=== PATIENT | male | born 1975 | race Caucasian/White ===

== ENCOUNTER 2021-03-23 08:18 | Emergency (ER) | payer OTHER ==
--- NOTE | 2021-03-23 08:26 | ED ---
General Adult HPI - General Stated complaint: Overdose Time Seen by Provider: 03/23/21 08:19 Source: patient, RN notes reviewed, old records reviewed - History of Present Illness Initial comments: -year-old male presents with heroin overdose. Patient was picked up in his front yard by EMS after police found him curled up sleeping. He admits to snorting heroin both last night and this morning. He has been previously abstaining from heroin for the past 6 months. He denies intentional self-harm or suicidal ideation. He denies any other illicit drugs. No physical complaints. Patient is somewhat somnolent but able to give history. - Related Data Allergies Allergy/AdvReac Type Severity Reaction Status Date / Time No Known Allergies Allergy Verified 03/23/21 08:26 Review of Systems ROS Statement: Those systems with pertinent positive or pertinent negative responses have been documented in the HPI. ROS Other: All systems not noted in ROS Statement are negative. General Exam General appearance: lethargic Head exam: Present: atraumatic, normocephalic Eye exam: Present: normal appearance, PERRL ENT exam: Present: normal exam Neck exam: Present: normal inspection. Absent: tenderness, meningismus Respiratory exam: Present: normal lung sounds bilaterally. Absent: respiratory distress Cardiovascular Exam: Present: regular rate, normal rhythm GI/Abdominal exam: Present: soft. Absent: distended, tenderness, guarding Extremities exam: Present: normal inspection, normal capillary refill. Absent: pedal edema Neurological exam: Present: alert. Absent: CN II-XII intact, motor sensory deficit Psychiatric exam: Present: depressed, anxious. Absent: suicidal ideation Skin exam: Present: warm, dry, intact. Absent: cyanosis, diaphoretic Course Vital Signs 03/23/21 08:20 Temperature 97.3 F L Pulse Rate 73 Respiratory 18 Rate Blood Pressure 133/97 O2 Sat by Pulse 97 Oximetry Medical Decision Making - Medical Decision Making Patient observed in the emergency Department, no need for Narcan, no need for supplemental oxygen. He has contacted his family member for a ride. He is given resources for drug rehabilitation. Disposition Clinical Impression: Accidental drug overdose Disposition: HOME SELF-CARE Condition: Fair Instructions (If sedation given, give patient instructions): Adult Overdose (ED) Is patient prescribed a controlled substance at d/c from ED?: No Referrals: None,Stated [Primary Care Provider] - 1-2 days Gilberto Pantoja MD [REFERRING] - 1-2 days Time of Disposition: 09:22
[2021-03-23 08:27] VITALS: RESP 18; TEMP 97.3
[2021-03-23 10:01] VITALS: BP 122/83; PULSE 68
== END 2021-03-23 10:00 | disposition home or self-care (01) ==
LOC: EC 08:18
DX: T40.1X1A Poisoning by heroin, accidental (unintentional), initial encounter (principal)
CPT/HCPCS: 99284

== ENCOUNTER 2021-10-11 07:13 | Inpatient (IN) | payer OTHER ==
[2021-10-11] MEDS ORDERED: ASPIRIN 300 MG SUPP RECTAL STA (07:19)
[2021-10-11 07:20] VITALS: TEMP 97.6
[2021-10-11 07:44] LABS: Basophils % (A) 0 %; Eosinophils # (A) 0.1 k/uL (0-0.7); Eosinophils % (A) 0 %; HCT 53.3 % (39.0-53.0); HGB 17.7 gm/dL (13.0-17.5); Lymphocytes # (A) 1.2 k/uL (1.0-4.8); Lymphocytes % (A) 7 %; MCHC 33.2 g/dL (31.0-37.0); MCV 96.4 fL (80.0-100.0); Monocytes # (A) 1.3 k/uL (0-1.0); Monocytes % (A) 7 %; Neutrophils # (A) 15.6 k/uL (1.3-7.7); Neutrophils % (A) 84 %; Platelet Count 213 k/uL (150-450); RBC 5.53 m/uL (4.30-5.90); RDW 12.9 % (11.5-15.5); WBC 18.6 k/uL (3.8-10.6)
[2021-10-11] MEDS ORDERED: IV FLUID CONTINUATION 1,000 ML IV ONE (07:52)
[2021-10-11] MEDS ORDERED: SODIUM CHLORIDE 0.9% 1,000 ML IV ONE ×4 (07:55→18:45)
[2021-10-11 07:56] LABS: Albumin 4.9 g/dL (3.5-5.0); Calcium 9.1 mg/dL (8.4-10.2); Total Bilirubin 0.6 mg/dL (0.2-1.3); Total Protein 8.6 g/dL (6.3-8.2)
[2021-10-11 07:57] LABS: Prothrombin Time 10.8 sec (9.0-12.0)
[2021-10-11] MEDS ORDERED: LIDOCAINE 1% INJ 10MG/ML (20 ML MDV) ONE ×2 (07:58→11:19)
[2021-10-11] MEDS ORDERED: SODIUM BICARB 8.4% 50 ML SYR (1 MEQ/ML) ONE ×2 (08:00→10:30)
[2021-10-11 08:02] LABS: Partial Thromboplastin Time 18.9 sec (22.0-30.0)
[2021-10-11 08:05] LABS: Magnesium 2.8 mg/dL (1.6-2.3); Potassium 6.6 mmol/L (3.5-5.1)
[2021-10-11] MEDS ORDERED: HEPARIN SODIUM 1,000 UN/ML (10ML VL) MISCELLANE ONE (08:05)
[2021-10-11] MEDS ORDERED: VERAPAMIL 2.5 MG/ML 2 ML AMP ONE (08:08)
[2021-10-11] MEDS ORDERED: NOREPINEPHRINE 4 MG in SODIUM CHLORIDE 0.9% 250 ML IV ONE (08:14)
[2021-10-11] MEDS ORDERED: ceFAZolin 3 GM in SODIUM CHLORIDE 0.9% 100 ML IVPB ONE (08:15)
[2021-10-11] MEDS ORDERED: LIDOCAINE 1% INJ 10MG/ML (20 ML MDV) SQ ONE ×2 (08:16→11:30)
--- NOTE | 2021-10-11 08:16 | ED ---
General Adult HPI - General Chief complaint: Shortness of Breath Stated complaint: altered mental status Time Seen by Provider: 10/11/21 07:13 Source: patient, RN notes reviewed, old records reviewed Mode of arrival: EMS Limitations: no limitations - History of Present Illness Initial comments: This is a 46-year-old male with a past medical history significant for heroin abuse. EMS was contacted because the patient was unresponsive the last time the patient was seen at his baseline was 1 AM. EMS also gave the patient was cyanotic. Patient is able to answer very basic questions and states he does not have any history of diabetes or heart disease but because he so lethargic I'm not sure his history is accurate. No one else is with the patient. - Related Data Home Medications Medication Instructions Recorded Confirmed Gabapentin [Neurontin] 400 mg PO TID 10/11/21 10/11/21 buPROPion HCL [buPROPion HCL SR] 200 mg PO DAILY 10/11/21 10/11/21 Allergies Allergy/AdvReac Type Severity Reaction Status Date / Time No Known Allergies Allergy Verified 10/11/21 10:08 Review of Systems ROS Statement: Those systems with pertinent positive or pertinent negative responses have been documented in the HPI. ROS Other: All systems not noted in ROS Statement are negative. Past Medical History Past Medical History: No Reported History History of Any Multi-Drug Resistant Organisms: None Reported Past Surgical History: No Surgical Hx Reported Past Psychological History: No Psychological Hx Reported Smoking Status: Current every day smoker Past Alcohol Use History: None Reported Past Drug Use History: Heroin, IV Drug Use General Exam - General Exam Comments Initial Comments: GENERAL: Patient is well-developed and well-nourished. Patient is nontoxic and well- hydrated and is in mild distress. ENT: Neck is soft and supple. No significant lymphadenopathy is noted. Oropharynx is clear. Moist mucous membranes. Neck has full range of motion without eliciting any pain. EYES: The sclera were anicteric and conjunctiva were pink and moist. Extraocular movements were intact and pupils were equal round and reactive to light. Eyelids were unremarkable. PULMONARY: Unlabored respirations. Good breath sounds bilaterally. No audible rales rho nchi or wheezing was noted. CARDIOVASCULAR: Patient is tachycardic. ABDOMEN: Soft and nontender with normal bowel sounds. SKIN: Skin is clear with no lesions or rashes and otherwise unremarkable. NEUROLOGIC: Patient is alert and oriented 3. Cranial nerves II through XII are grossly intact. Motor and sensory are also intact. Normal speech, volume and content. Symmetrical smile. MUSCULOSKELETAL: Normal extremities with adequate strength and full range of motion. No lower extremity swelling or edema. No calf tenderness. LYMPHATICS: No significant lymphadenopathy is noted PSYCHIATRIC: Unable to evaluate since so lethargic Limitations: no limitations Course Vital Signs 10/11/21 07:15 Temperature 97.6 F Pulse Rate 109 H Respiratory 30 H Rate Blood Pressure 75/53 O2 Sat by Pulse 96 Oximetry Procedures - [place] Protocol (Time Out) Procedure Performed:: central line placement Performing Provider: Reuben Chavez Nurse: Liliana Purcell Patient Identification (2 identifiers required): Chart, Arm Band, Name, Birthdate, Medical Record Number Patient/Legal Athletic Field Custodian has Confirmed: Identity, Site, Procedure, Consent Site: groin Site Marked: Yes Site Verified With Patient/Guardian: Yes - Central Line Placement Right Femoral Consent Obtained: verbal consent Patient Placed on Monitor/Pulse Ox: Yes MD Prep: mask, gown, gloves Central Line Prep: Chlorhexidine scrub Local Anesthesia Used: Lidocaine 1% Ultrasound Used for Placement: Yes Central Line Lumen Inserted: triple Bloods Obtained for Lab: No Central Line Position: good blood return, all ports aspirated, flushed, capped, sutured in place with nylon Dressing Applied: Tegaderm Patient Tolerated Procedure: well Complications: none Medical Decision Making - Medical Decision Making Chest x-ray showed no obvious acute abnormality. Patient has no access had a central line in the right femoral. Patient received rectal aspirin. Patient also received a bolus of heparin. Soon as the patient arrived I did call a STEMI and afterward it was done with the central line spoke with Dr. Valdes. Patient's EKG initially showed sinus tachycardia at 110 bpm WA interval is 124 QRS is 102 QT interval 312 QTC is 422 patient's EKG shows significant ST segment elevation in II, III, and F aVF as well as V5 and V6. Second EKG was done at 742 it showed sinus tachycardia at 109 bpm WA interval is 128 QRSs 104 QT interval 320 QTC is 4:30. EKG showed ST segment elevation in leads II, III, and F aVF and minimal ST segment elevation in V5 and V6. [facility] the [facility] I put an admitting order and the patient went to the Dock Superintendent. Patient was in the Dock Superintendent when I noted that the potassium was 6.6 and hemolyzed I had those results called into the Dock Superintendent. - Lab Data Result diagrams: 10/11/21 07:35 10/11/21 08:50 Lab Results 10/11/21 10/11/21 10/11/21 Range/Units 07:35 07:35 07:35 WBC 18.6 H (3.8-10.6) k/uL RBC 5.53 (4.30-5.90) m/uL Hgb 17.7 H (13.0-17.5) gm/dL Hct 53.3 H (39.0-53.0) % MCV 96.4 (80.0-100.0) fL MCH 32.0 (25.0-35.0) pg MCHC 33.2 (31.0-37.0) g/dL RDW 12.9 (11.5-15.5) % Plt Count 213 (150-450) k/uL MPV 9.0 Neutrophils % 84 % Lymphocytes % 7 % Monocytes % 7 % Eosinophils % 0 % Basophils % 0 % Neutrophils # 15.6 H (1.3-7.7) k/uL Lymphocytes # 1.2 (1.0-4.8) k/uL Monocytes # 1.3 H (0-1.0) k/uL Eosinophils # 0.1 (0-0.7) k/uL Basophils # 0.0 (0-0.2) k/uL PT 10.8 (9.0-12.0) sec INR 1.0 (<1.2) APTT 18.9 L (22.0-30.0) sec Sodium 138 (137-145) mmol/L Potassium 6.6 H* (3.5-5.1) mmol/L Chloride 100 (98-107) mmol/L Carbon Dioxide 15 L (22-30) mmol/L Anion Gap 23 mmol/L BUN 21 H (9-20) mg/dL Creatinine 3.02 H (0.66-1.25) mg/dL Est GFR (CKD-EPI)AfAm 27 (>60 ml/min/1.73 sqM) Est GFR (CKD-EPI)NonAf 24 (>60 ml/min/1.73 sqM) Glucose 92 (74-99) mg/dL Calcium 9.1 (8.4-10.2) mg/dL Magnesium 2.8 H (1.6-2.3) mg/dL Total Bilirubin 0.6 (0.2-1.3) mg/dL AST 773 H (17-59) U/L ALT 497 H (4-49) U/L Alkaline Phosphatase 72 (38-126) U/L Troponin I (0.000-0.034) ng/mL Total Protein 8.6 H (6.3-8.2) g/dL Albumin 4.9 (3.5-5.0) g/dL 10/11/21 Range/Units 07:35 WBC (3.8-10.6) k/uL RBC (4.30-5.90) m/uL Hgb (13.0-17.5) gm/dL Hct (39.0-53.0) % MCV (80.0-100.0) fL MCH (25.0-35.0) pg MCHC (31.0-37.0) g/dL RDW (11.5-15.5) % Plt Count (150-450) k/uL MPV Neutrophils % % Lymphocytes % % Monocytes % % Eosinophils % % Basophils % % Neutrophils # (1.3-7.7) k/uL Lymphocytes # (1.0-4.8) k/uL Monocytes # (0-1.0) k/uL Eosinophils # (0-0.7) k/uL Basophils # (0-0.2) k/uL PT (9.0-12.0) sec INR (<1.2) APTT (22.0-30.0) sec Sodium (137-145) mmol/L Potassium (3.5-5.1) mmol/L Chloride (98-107) mmol/L Carbon Dioxide (22-30) mmol/L Anion Gap mmol/L BUN (9-20) mg/dL Creatinine (0.66-1.25) mg/dL Est GFR (CKD-EPI)AfAm (>60 ml/min/1.73 sqM) Est GFR (CKD-EPI)NonAf (>60 ml/min/1.73 sqM) Glucose (74-99) mg/dL Calcium (8.4-10.2) mg/dL Magnesium (1.6-2.3) mg/dL Total Bilirubin (0.2-1.3) mg/dL AST (17-59) U/L ALT (4-49) U/L Alkaline Phosphatase (38-126) U/L Troponin I 0.640 H* (0.000-0.034) ng/mL Total Protein (6.3-8.2) g/dL Albumin (3.5-5.0) g/dL Critical Care Time Critical Care Time: Yes Total Critical Care Time: 35 Disposition Clinical Impression: STEMI (ST elevation myocardial infarction) Disposition: ADMITTED IP TO THIS [facility] Time of Disposition: 08:19
--- NOTE | 2021-10-11 08:23 | XR ---
EXAMINATION TYPE: XR chest 1V portable DATE OF EXAM: 10/11/2021 COMPARISON: NONE HISTORY: Chest pain TECHNIQUE: Single frontal view of the chest is obtained. FINDINGS: The heart is prominent in size and there is mild cephalization of pulmonary vasculature. T he lungs are clear consolidative or interstitial opacity. There is no pleural effusion or pneumothorax. The osseous structures are intact. IMPRESSION: Cardiomegaly with mild cephalization the pulmonary vasculature. The findings are most co nsistent with mild CHF. Clinical correlation follow-up to resolution is recommended.
[2021-10-11] MEDS ORDERED: SODIUM BICARB SYR (1 MEQ/ML) 10 ML SYRINGE IV ONE ×2 (08:26→10:05)
[2021-10-11] MEDS: MIDAZOLAM 2 MG/2 ML VIAL IV ONE ×2 (08:28→09:45)
[2021-10-11] MEDS ORDERED: HEPARIN SODIUM 1,000 UN/ML (10ML VL) ONE ×2 (08:29→11:49)
[2021-10-11] MEDS ORDERED: TIROFIBAN BOLUS 12.5MG/250 ML BAG IV ONE (08:38)
[2021-10-11] MEDS ORDERED: TIROFIBAN 12.5MG-250ML NS 250 ML IV ONE (08:38)
[2021-10-11] MEDS ORDERED: niCARdipine 25 MG/10 ML VIAL ONE (08:56)
[2021-10-11] MEDS ORDERED: IOPAMIDOL-370 100ML BTL INJ ONE ×3 (08:58→12:30)
[2021-10-11] MEDS ORDERED: niCARdipine Syringe (1,000 mcg/10 mL) INTRACORON ONE (08:59)
[2021-10-11] MEDS ORDERED: METOPROLOL TARTRATE 5 MG/5 ML VIAL IVP ONE ×4 (09:00→09:23)
[2021-10-11] MEDS ORDERED: FUROSEMIDE 10 MG/ML 4 ML VIAL ONE (09:06)
[2021-10-11] MEDS ORDERED: FUROSEMIDE 10 MG/ML 4 ML VIAL IV ONE (09:07)
[2021-10-11] MEDS ORDERED: TICAGRELOR 90 MG TAB ONE (09:19)
[2021-10-11] MEDS ORDERED: TICAGRELOR 90 MG TAB PO ONE (09:22)
[2021-10-11] MEDS ORDERED: RX INFO: IV CONTRAST WAS GIVEN 1 EACH MISC MISCELLANE PRN (09:39)
[2021-10-11] MEDS ORDERED: ATROPINE SULFATE 0.1 MG/ML 10ML SYRINGE IV PRN (09:39)
[2021-10-11] MEDS ORDERED: MAG HYDROX/AL HYDROX/SIMETH 30 ML CUP PO PRN (09:39)
[2021-10-11] MEDS ORDERED: NITROGLYCERIN SL TABS 0.4 MG TAB SUBLINGUAL PRN (09:39)
[2021-10-11] MEDS ORDERED: ZOLPIDEM 5 MG TAB PO PRN (09:39)
[2021-10-11] MEDS ORDERED: SODIUM CHLORIDE 0.9% 1,000 ML IV SCH (09:45)
[2021-10-11 09:47] LABS: Calcium 7.9 mg/dL (8.4-10.2)
[2021-10-11] MEDS ORDERED: PROPOFOL 10 MG/ML 100 ML VIAL IV ONE (09:55)
[2021-10-11 10:01] LABS: Potassium 7.3 mmol/L (3.5-5.1)
[2021-10-11 10:02] LABS: Troponin I 2.06 ng/mL (0.000-0.034)
[2021-10-11] MEDS ORDERED: DEXTROSE 50% SYRINGE 50 ML IVP ONE ×2 (10:08→10:30)
[2021-10-11] MEDS ORDERED: INSULIN ASPART (NovoLOG) 100 UNIT/ML VIAL SQ STA (10:12)
[2021-10-11 10:30] LABS: ABG Base Excess -10.8 mmol/L; ABG HCO3 17 mmol/L (21-25); ABG Oxygen Saturation 99.4 % (94-97); ABG PCO2 42 mmHg (35-45); ABG PH 7.22 (7.35-7.45); ABG PO2 275 mmHg (83-108)
[2021-10-11] MEDS ORDERED: DEXTROSE 5% IN WATER 50 ML BAG ONE (10:30)
[2021-10-11] MEDS ORDERED: TIROFIBAN 12.5MG-250ML NS 250 ML IV SCH (10:30)
[2021-10-11] MEDS ORDERED: NOREPINEPHRINE 8 MG in SODIUM CHLORIDE 0.9% 250 ML IV SCH (10:30)
[2021-10-11] MEDS ORDERED: EPINEPHrine 10 ML SYRINGE (0.1 MG/ML) ONE ×2 (10:30→20:30)
[2021-10-11] MEDS ORDERED: AMIODARONE 50 MG/ML 3 ML VIAL IV ONE (10:30)
[2021-10-11] MEDS ORDERED: INSULIN ASPART (NovoLOG) 100 UNIT/ML VIAL SQ ONE (10:46)
[2021-10-11 10:54] LABS: Amphetamine Screen,Urine Not Detected (NotDetected); Barbiturate Screen,Urine Not Detected (NotDetected); Benzodiazepines Screen,Urine Not Detected (NotDetected); Cocaine Screen,Urine Detected (NotDetected); Methadone Screen, Urine Not Detected (NotDetected); Opiate Screen,Urine Not Detected (NotDetected); Oxycodone Screen, Urine Not Detected (NotDetected); Phencyclidine Screen,Urine Not Detected (NotDetected); Tricyclic Antidepressant,Urine Not Detected (NotDetected); Urn Cannabinoid Scrn Not Detected (NotDetected)
[2021-10-11] MEDS: EPINEPHrine 10 ML SYRINGE (0.1 MG/ML) IV ONE ×3 (11:28→12:26)
[2021-10-11] MEDS ORDERED: DEXTROSE 5% IN WATER 1,000 ML with SODIUM BICARB (1 MEQ/ML) 100 ML IV SCH (11:30)
--- NOTE | 2021-10-11 11:40 | CC ---
CARDIAC CATHETERIZATION REPORT DATE OF SERVICE: 10/11/2021. PROCEDURE: 1. Left heart catheterization and coronary angiography. 2. PTCA and stenting of the PLV branch of a superdominant RCA and distal RCA with a drug-eluting stent. 3. Aspiration atherectomy performed with an export catheter. Moderate conscious sedation time was 58 minutes. Patient was administered Versed. Oxygen saturation, hemodynamics and EKG were monitored closely. During the intervention procedure, the patient was also intubated by Anesthesia upon my request. CLINICAL INFORMATION: Mr. Isrrael Mondragon is a 46-year-old gentleman presented with unresponsiveness drug overdose and was found to have inferior ST elevation, was brought to the seed laboratory assistant after his oxygenation was fairly decent, but he continued to have disorientation. He had inferior ST-elevation, hypotension. I requested intubation and ventilatory support, initiated Levophed drip and proceeded with cardiac catheterization. PROCEDURE NOTE: Under local anesthesia and strict aseptic precautions, I tried to access from right radial, I had difficulty feeling the pulse then switched over to left femoral approach. I used a micropuncture needle technique, gained access to the left femoral artery, placed a 6-Uzbek introducer. I started off with a right Tenzin guide catheter and noted that there was a significant lesion in the distal RCA, 95% with thrombus and also PLV branch had 85% lesion with thrombus. I proceeded to perform intervention and following the intervention, I performed coronary angiography of the left system with a standard diagnostic left Tenzin catheter, and then checked LV pressures with a pigtail catheter but did not perform an LV-gram. The sheath was then sutured and patient will be sent to the ICU. CARDIAC CATHETERIZATION FINDINGS: The left ventricular end-diastolic pressure was 23 mmHg without any gradient across aortic valve. CORONARY ANGIOGRAPHY FINDINGS: RIGHT CORONARY ARTERY: A very large dominant vessel, has a distal lesion of 95% with thrombus and divides into a large PLV and PDA, PLV has also 85% lesion with thrombus and PDA branch is totally occluded in the midportion. PLV also has a distal occlusion with thrombus. LEFT MAIN CORONARY ARTERY: Short, patent disease-free vessel that bifurcates into LAD and circumflex. LEFT ANTERIOR DESCENDING CORONARY ARTERY: Small caliber, fair distribution vessel with a mid lesion of about 70% after the diagonal branch. The diagonal also has a 60% lesion. Mid LAD therefore has a 70% lesion. This is a small caliber vessel that runs towards the apex. Diagonal has a 60% lesion. LEFT POSTERIOR CIRCUMFLEX CORONARY ARTERY: Nondominant vessel. Good caliber obtuse marginal that runs laterally, bifurcates into 2 branches and then runs in the AV groove, has no significant disease. There are minor diffuse irregularities in the distal circumflex branches. LV-gram was not performed. FINAL IMPRESSION: This patient has elevated filling pressures. No gradient. 95% distal RCA with thrombus and also PLV 85% with thrombus. PDA has distal occlusion with thrombus and PLV has distal occlusion with thrombus. LAD has a mid 70% lesion, small caliber vessel, relatively. The circumflex has minor irregularities, nondominant. RECOMMENDATIONS: I recommended PCI of RCA and proceeded to perform this in the same setting. PCI PROCEDURE DETAILS: A standard right Tenzin guide catheter was used to cannulate the right coronary artery. A run-through wire was used to cross the lesion. A 3.0 caliber 15 mm long trek balloon was used to dilate the PLV as well as the distal RCA. I deployed a 3.0 caliber 15 mm stent in the PLV branch and also deployed a 4.0 caliber 15 mm long Xience stent into the distal RCA. Both of these were drug-eluting Xience stents 3.0 caliber in 50 mm length in the PLV and a 4.0 caliber 15 mm length distal RCA. Excellent angiographic result was achieved. There was a lot of thrombus distally. Prior to the placement of stent, I used an export catheter to do aspiration thrombectomy from the PLV into the distal RCA with modest thrombus retrieval. The patient received 180 mg of Brilinta and also received heparin intravenously of about a total of 8000 units including the 4000 in the ER and Aggrastat bolus and drip was initiated. The patient's ACT was about 245. Excellent angiographic result was achieved. Distal flow was restored in the PDA, fairly decent distal flow noted in the PLV branch, but distal branches were still occluded. The patient was on a Levophed drip transiently and at the end of the procedure, Levophed drip was taken off and his blood pressure will require Levophed support at this time. He was also intubated during the procedure and placed on the ventilator with sedation and he will be sent to the ICU. I called and spoke to the gauge controller, Dr. Chapni and gave him a report and requested vent management and the ICU management. ADRIANA / IJN: [id number] /
--- NOTE | 2021-10-11 11:43 | CONS ---
CONSULTATION DATE OF SERVICE: 10/11/2021 Mr. Isrrael Mondragon is a 46-year-old gentleman admitted through the emergency room. He presented to the emergency room unresponsive and was brought in after he was found and there was concern that he had a drug overdose, received Narcan almost 12 amps and barely woke up. He was not hypoxic, but was totally disoriented. No further history is available. I examined the patient and noted that his S1 and S2 were heard normally without significant murmurs. There was diminished breath sounds both lungs. His pulses were very feeble. Radial pulse was not easily palpable. Blood pressure was about 85 systolic. I initiated him on a Levophed drip and proceeded with a cardiac cath immediately and also requested Anesthesia to come and intubate the patient. Given the fact his airway protection would be an issue. EKG revealed inferior ST elevation with sinus tachycardia suggestive of acute inferior ST-elevation PR in addition to the underlying drug overdose. IMPRESSION: 1. Probable drug overdose, details unclear. Heroin is a concern according to the ER physician with my conversation. 2. Acute inferior ST-elevation myocardial infarction. RECOMMENDATIONS: Intravenous Levophed drip, intubation, and ventilator assistance and prompt cardiac cath and PCI if necessary. MMODL / IJN: [id number] /
[2021-10-11] MEDS ORDERED: PHENYLEPHRINE-0.9% NACL SYG 1,000 MCG/10 ML SYRINGE IV ONE (12:07)
[2021-10-11] MEDS ORDERED: HEPARIN SODIUM 1,000 UN/ML (10ML VL) IV PRN (12:27)
[2021-10-11] MEDS ORDERED: HEPARIN SODIUM,PORCINE 12,500 UNIT in DEXTROSE 5% IN WATER 500 ML IV SCH ×2 (13:00)
[2021-10-11] MEDS ORDERED: HEPARIN SOD,PORK IN 0.45% NACL 25,000 UNIT in 0.45% NACL 1 250ML.BAG IV SCH (13:00)
[2021-10-11 13:24] LABS: Potassium 6.9 mmol/L (3.5-5.1)
[2021-10-11 13:45] LABS: Glucose,Whole Blood 140 mg/dL (75-99)
[2021-10-11 13:54] VITALS: BP 108/68
--- NOTE | 2021-10-11 14:01 | ECHOF ---
Referral Reason:Acute INF STEMi and Drug OD MEASUREMENTS -------- HEIGHT: 0.0 cm WEIGHT: 0.0 kg BP: FINDINGS -------- Limited Study S/P LVAD PLACEMENT Overall left ventricular systolic function is moderate-severely impaired with, an EF between 30 - 35 %. There is no pericardial effusion. CONCLUSIONS -------- 1. Overall left ventricular systolic function is moderate-severely impaired with, an EF between 30 - 35 %. LVAD IN PLACE COARSE WIRE DRAWER: Bhargavi Olsen RDCS
--- NOTE | 2021-10-11 14:01 | ECHOF ---
Referral Reason: MEASUREMENTS -------- HEIGHT: 0.0 cm WEIGHT: 0.0 kg BP: FINDINGS -------- Lying flat post cath. There is moderate global hypokinesis of LV . Overall left ventricular systolic function is severely impaired with, an EF between 20 - 25 %. There is no evidence of aortic regurgitation. Mild mitral regurgitation is present. There is no pericardial effusion. CONCLUSIONS -------- 1. There is moderate global hypokinesis of LV . 2. Overall left ventricular systolic function is severely impaired with, an EF between 20 - 25 %. 3. Mild mitral regurgitation is present. PHARMACY INTAKE TECHNICIAN: Bhargavi Olsen [facility]
--- NOTE | 2021-10-11 14:09 | PN ---
PROGRESS NOTE I had a long discussion with the patient's girlfriend, Christa Vargas. Apparently this patient for 6 months is living here in [place] using heroin every day. She has two children with him and she lives in [place] and he has been a cocaine and heroin addict for quite some time. He smokes two packs a day and uses alcohol occasionally. Unfortunately patient apparently was probably down for a long time, unresponsive. By the time EMS got there he was bluish-colored. They were able to give him 12 amps of Narcan and revived him to the point he was responsive and was talking, mumbling without making sense and was fully disoriented. They brought him to the ER, where he seemed to be making some verbal communication without any meaningful sense. However, he also had CPR of nearly 20 minutes here in the catheterization laboratory technician following the procedure. It is unclear how much anoxic damage he may have had. However, prognosis is poor. We will continue to support him over the next 24 hours and reassess his status. I explained to the patient's girlfriend Christa Vargas that he is in a critical condition with a high risk of mortality, but we will do the best we can and keep her posted. Prognosis remains poor. MMODL / IJN: [id number] /
--- NOTE | 2021-10-11 14:09 | PN ---
PROGRESS NOTE Mr. Mondragon after he underwent stenting of his distal RCA and PLV branch was on the table waiting for a bed in the ICU. He was not on any Levophed to begin with. Then, because of some hypotension, he was placed on Levophed, but subsequently he went into a hypotensive situation and also had like a pulseless electrical activity. CPR was immediately begun. He was given amiodarone, epinephrine and bicarb. Patient was also hyperkalemic. He received glucose, insulin and calcium chloride. With these interventions and a prolonged CPR of over 20 minutes, he got his own pulse back. We then stabilized him and performed an echocardiogram at bedside which revealed ejection fraction of about 30% with inferior wall hypokinesia and also inferoapical dyskinesia. I spoke to the patient's girlfriend on the phone and suggested that we were doing CPR and the prognosis was bad. If he recovers, I suggested I will place an Impella in view of persisting hypotension. After due discussion with the patient's girlfriend, we stabilized the patient and I then proceeded to perform an Impella placement followed by repeat coronary angiography. Impella placement was performed uneventfully from left femoral approach under fluoroscopic guidance as per standard procedure. I also performed coronary angiography which revealed that the RCA as well as the PLV branch was widely patent and PDA was widely patent. The left coronary system did not have any significant disease, and the LAD stenosis that was seen before after nitroglycerin seems to be no more than 40% to 50%. Since there was a decent flow in the LAD and circumflex, I felt we should not do any further intervention and instead I sutured the Impella in and prepared for him to go to the ICU. Distal pulse in the left lower extremity was palpable. Patient is on 10 mcg of Levophed. Urine output is scanty. Prognosis remains very poor, but patient will be sent to the ICU and I will go and speak to patient's girlfriend, Christa Vargas. MMODL / IJN: [id number] /
[2021-10-11 14:21] LABS: ABG HCO3 13 mmol/L (21-25); ABG Oxygen Saturation 78.4 % (94-97); ABG PCO2 56 mmHg (35-45); ABG TCO2 15 mmol/L (19-24)
--- NOTE | 2021-10-11 14:23 | XR ---
EXAMINATION TYPE: XR chest 1V portable DATE OF EXAM: 10/11/2021 COMPARISON: Chest radiograph same day. HISTORY: Status post intubation. TECHNIQUE: Single frontal view of the chest is obtained. FINDINGS: Interval placement of endotracheal tube tip in appropriate position above the rivera. Righ t upper lobe hazy opacities which are now felt to be due to patient positioning. Vertebral placement of nasogastric tube with the visualization of the distal tip under the diaphragm. There is pleural ef fusion, or pneumothorax seen. The cardiac silhouette size is within normal limits. The osseous str uctures are intact. IMPRESSION: 1. Interval placement of endotracheal tube distal tip in appropriate position. 2. Nasogastric tube with distal tip felt to be at the gastroesophageal junction. Consider advancement of 8 cm for appropriate placement. 3. Right upper lobe airspace opacities felt to be secondary to patient positioning attention on follo w-up imaging.
[2021-10-11 14:24] LABS: ABG PH 6.99 (7.35-7.45); ABG PO2 57 mmHg (83-108); Allen Test Performed? no
[2021-10-11] MEDS ORDERED: SODIUM CHLORIDE 0.9% 150 ML with VASOPRESSIN 60 UNIT IV SCH ×2 (14:30)
[2021-10-11] MEDS ORDERED: SODIUM BICARB 8.4% 50 ML SYR (1 MEQ/ML) IV STA ×5 (14:31→15:30)
[2021-10-11] MEDS ORDERED: DEXTROSE 50% SYRINGE 50 ML IVP STA (14:41)
[2021-10-11] MEDS ORDERED: INSULIN REGULAR 100 UNIT/ML VIAL (IV) IV ONE (14:45)
[2021-10-11] MEDS ORDERED: CALCIUM GLUCONATE 1 GM in SODIUM CHLORIDE 0.9% 100 ML IVPB ONE (14:45)
[2021-10-11] MEDS ORDERED: SODIUM CHLORIDE 0.9% 500 ML 500 ML IV ONE (15:00)
[2021-10-11 15:04] LABS: Basophils # (A) 0.2 k/uL (0-0.2); Basophils % (A) 1 %; Eosinophils # (A) 0.1 k/uL (0-0.7); Eosinophils % (A) 1 %; HGB 17.9 gm/dL (13.0-17.5); Hypochromasia Slight; Lymphocytes % (A) 9 %; MCH 31.8 pg (25.0-35.0); MCHC 31.6 g/dL (31.0-37.0); MCV 100.7 fL (80.0-100.0); Mean Platelet Volume 9.9; Monocytes % (A) 5 %; Neutrophils # (A) 17.7 k/uL (1.3-7.7); Neutrophils % (A) 83 %; Platelet Count 251 k/uL (150-450); RBC 5.63 m/uL (4.30-5.90); WBC 21.2 k/uL (3.8-10.6)
--- NOTE | 2021-10-11 15:06 | CC ---
CARDIAC CATHETERIZATION REPORT DATE OF SERVICE: 10/11/2021. PROCEDURE PERFORMED: Impella placement and coronary angiography. Sedation time : 55 min DESCRIPTION OF PROCEDURE: Under strict aseptic precautions and local anesthesia, the left groin was again prepared. There was an existing 6-Dutch introducer. I advanced a long guidewire and exchanged this introducer over to an 8-Dutch dilator and then used 2 Perclose devices and preclosed it, one in the 10 o'clock and one in 2 o'clock position. I then advanced the 10 and 12-Dutch introducers and eventually the 14-Dutch Impella long sheath. Subsequently, under fluoroscopic guidance using a pigtail catheter and a 035 wire, I crossed the aortic valve and then took the wire out and advanced the 018 wire provided by the Impella kit. Over the 018 wire, advanced the Impella, positioned it. There was an excellent normal waveform and the cardiac output was about 3.5 L. The patient was appropriately given heparin and ACT was about over 300. I then advanced under fluoroscopic guidance using a micropuncture needle technique in the 2 o'clock position of the Impella sheath, I punctured it and placed a 6-Dutch introducer. Through the 6- Dutch introducer, I performed coronary angiography using diagnostic catheters and gave some nitroglycerin to the left coronary system. Following the coronary angiography, the sheath was taken out and the Impella was sutured and patient will be sent to the ICU. I spoke to the patient's girlfriend in detail, explained poor prognosis and that we will watch him at least for 24 hours and see if he makes any progress and if he is hemodynamically stable, I will take the Impella out. We will leave him on a heparin drip without bolus and keep an ACT between 200 and 250. I will also give him Kefzol IV piggyback 2 g q.8 hours. The patient's renal function is already impaired and we are concerned about this. He is also placed on a bicarb drip and I will recheck his potassium levels. Prognosis remains poor. Patient and his girlfriend are fully aware. CORONARY ANGIOGRAPHY FINDINGS: RIGHT CORONARY ARTERY: Dominant vessel, widely patent at the site of distal stenting and PLV branch. Good flow. MICHELLE-3 flow noted. The distal tiny branches of PLV are occluded but the PDA is widely patent. Left coronary system is widely patent. LAD lesion is no more than 40-50 percent. Circumflex is free of significant disease, nondominant vessel. There is MICHELLE-3 flow in all vessels. Prognosis remains poor. Patient will be sent to the ICU. ADRIANA / MILLER: [id number] / MTDD
[2021-10-11] MEDS ORDERED: NOREPINEPHRINE 32 MG in SODIUM CHLORIDE 0.9% 218 ML IV SCH (15:30)
[2021-10-11 16:01] LABS: HCT 56.7 % (39.0-53.0)
[2021-10-11] MEDS ORDERED: SODIUM ZIRCONIUM CYCLOSILICATE 10 GM PACKET PO ONE (16:15)
[2021-10-11] MEDS: DEXTROSE 5% IN WATER 1,000 ML with SODIUM BICARB (1 MEQ/ML) 150 ML IV SCH ×2 (16:30→17:00)
[2021-10-11 16:49] LABS: Magnesium 2.6 mg/dL (1.6-2.3); Total Protein 7.5 g/dL (6.3-8.2)
[2021-10-11] MEDS ORDERED: CISATRACURIUM 2 MG/ML 5 ML VIAL IV ONE (16:49)
[2021-10-11 17:00] LABS: Total Bilirubin 3.1 mg/dL (0.2-1.3)
[2021-10-11] MEDS ORDERED: CISATRACURIUM 200 MG in SODIUM CHLORIDE 0.9% 180 ML IV SCH (17:00)
[2021-10-11 17:28] VITALS: RESP 34
--- NOTE | 2021-10-11 17:51 | P.CNPUL ---
History of Present Illness Consult date: 10/11/21 Chief complaint: Cardiac arrest History of present illness: This is a 46-year-old male patient, known history of heroin abuse, presented to the [facility] department unresponsive. He was last seen at his baseline at around 1 AM. Upon arrival, the patient was quite cyanotic. He was unable to answer basic questions. He was quite lethargic. He underwent initial evaluation in the emergency department. EKG showed ST segment elevation myocardial infarction and the patient had ST segment elevation involving the inferior leads specifically lead 2 and 3 and aVF as well as V5 and V6. EKG showed a normal sinus rhythm. At that point, cardiology was activated. Chest x-ray showed no acute abnormalities. Troponins were minimally elevated. The patient was taken to the Client Services Account Manager and he underwent a emergent cardiac catheterization. The during the cath crosses, the patient had to be intubated and he was placed on a mechanical ventilator. The cardiac catheterization showed elevated filling pressures, the patient had 95% distal RCA with thrombus and also PLV 85% with thrombus. PDA had distal occlusion with thrombus and PLV had distal occlusion with thrombus. LAD had 70% stenosis in its midportion. Circumflex had minor irregularities. The patient underwent PCI of the RCA. During the process, the patient had to be intubated and placed on a mechanical ventilator. Following that, as the patient was in [facility] Services [facility], the patient went into cardiac pulmonary arrest. The patient had PEA rhythm along with wide complex rhythm. At that point, the patient was down for a total of 30 minutes. During the process, the patient received CPR and he was given a total of 9 doses of epinephrine he was also given amiodarone. Ultimately, there was return of spontaneous circulation. Repeat cardiac catheterization was done and the RCA was widely patent. An Impella catheter was inserted and following that the patient was transferred to the intensive care unit. I met the patient in the ICU. The patient was being supported with an Impella device, P8 with an output of 3.5 L. Echocardiogram was already done and the patient was found to have severe LV dysfunction with an ejection fraction of 20-25%. The patient augment the blood pressure was 70/41. The patient was on high-dose norepinephrine infusion which was running at 0.35 mcg/kg per minute. The patient was also started on vasopressin. Urine output was 0. The patient also had developed an acute kidney injury. Patient's potassium was as high as 6.9. All of the samples are being sent from the ICU are coming back hemolyzed. His BUN is 34 with a creatinine of 3.8. His troponi n peaked at 64. His BUN was at 34 with a creatinine of 3.8. Also, the patient was on a mechanical ventilator. He was an assist-control mode of mechanical ventilation. I had to increase his respiratory rate up to 34 and I put him on a tidal volume of 500 with a PEEP of 10 and FiO2 100%. His pH prior to that was at 6.9 with a pCO2 of 56 and pO2 of 57 and follow-up blood gases are pending. The patient was given also bicarb a total of 3 doses of 50 mEq of sodium bicarbonate in addition to D50 insulin and the patient was also given lokelma by nephrology. Follow-up potassium is pending. Calcium gluconate 1 g was also given. The patient was subsequently sedated with propofol at a low-dose. The sedation was started to maintain 60 with a mechanical ventilator. The patient was completely unresponsive. The patient was also paralyzed with Nimbex to maintain 60 with a mechanical ventilator. At this point in time, the patient is on high-dose pressors with norepinephrine, and the patient is also on Aggrenox, patient is on a combination of propofol and Nimbex for sedation and paralysis, the patient is on vasopressin physiologic dose. The patient is also on a bicarb infusion running at the rate of 100 mL an hour. Chest x-ray showed a right upper lobe consolidation along with pulmonary edema. ET tube was in a good location. Pneumonia superimposed cannot be completely ruled out and this could be of an aspiration type. Current cardiac rhythm is sinus tachycardia. There was also diffuse T-wave inversions on the consumer loan processor. Review of Systems ROS unobtainable: due to endotracheal tube Past Medical History Past Medical History: No Reported History Additional Past Medical History / Comment(s): Obesity, history of substance abuse in the form of heroin History of Any Multi-Drug Resistant Organisms: None Reported Past Surgical History: No Surgical Hx Reported Past Psychological History: No Psychological Hx Reported Smoking Status: Current every day smoker Past Alcohol Use History: None Reported Past Drug Use History: Heroin, IV Drug Use Medications and Allergies Home Medications Medication Instructions Recorded Confirmed Type Gabapentin [Neurontin] 400 mg PO TID 10/11/21 10/11/21 History buPROPion HCL [buPROPion HCL SR] 200 mg PO DAILY 10/11/21 10/11/21 History Allergies Allergy/AdvReac Type Severity Reaction Status Date / Time No Known Allergies Allergy Verified 10/11/21 10:08 Physical Exam Vitals: Vital Signs Temp Pulse Resp BP Pulse Ox 10/11/21 17:15 107 H 34 H 85 L 10/11/21 17:00 108 H 42 H 79 L 10/11/21 16:45 107 H 80 L 10/11/21 16:30 105 H 80 L 10/11/21 16:15 106 H 81 L 10/11/21 16:00 105 H 34 H 81 L 10/11/21 15:45 103 H 35 H 81 L 10/11/21 15:30 104 H 36 H 81 L 10/11/21 15:15 106 H 34 H 84 L 10/11/21 15:00 96 34 H 87 L 10/11/21 14:45 96 34 H 72 L 10/11/21 14:30 96 33 H 80 L 10/11/21 14:15 96 27 H 78 L 10/11/21 14:00 96 30 H 76 L 10/11/21 13:45 98 33 H 86 L 10/11/21 13:30 98 33 H 85 L 10/11/21 07:45 108 H 22 108/68 97 10/11/21 07:15 97.6 F 109 H 30 H 75/53 96 Intake and Output 10/11/21 10/11/21 10/11/21 06:59 14:59 22:59 Intake Total 1541.64 3250 Output Total 65 0 Balance 1476.64 3250 Intake: IV 1541.64 3250 Sodium Chloride 0.9% 1, 75 3250 000 ml @ 75 mls/hr IV . [id number] [facility] Rx#:[id number] Output: Urine 65 0 Other: Weight 131.542 kg ABP, PAP, CO, CI - Last 8 Hours Arterial Blood Pressure 74/64 Arterial Blood Pressure 76/59 Arterial Blood Pressure 78/55 Arterial Blood Pressure 91/57 Arterial Blood Pressure 109/70 Arterial Blood Pressure 99/66 Arterial Blood Pressure 92/60 Arterial Blood Pressure 110/65 Arterial Blood Pressure 77/66 Arterial Blood Pressure 82/65 Arterial Blood Pressure 85/65 Arterial Blood Pressure 80/62 Arterial Blood Pressure 73/47 Arterial Blood Pressure 89/69 Arterial Blood Pressure 83/64 Morbidly obese, currently sedated and paralyzed. The patient underwent a combination of propofol and Nimbex. Head exam was generally normal. There was no scleral icterus or corneal arcus. Mucous membranes were moist. Neck was supple and without jugular venous distension, thyromegaly, or carotid bruits. Carotids were easily palpable bilaterally. There was no adenopathy. Neck is short and supple and the patient has crowding of the posterior oropharynx. Lungs sounds are diminished bilaterally especially lung bases. Breath sounds are equal and symmetrical. Cardiac exam revealed the PMI to be normally situated and sized. The rhythm was regular and no extrasystoles were noted during several minutes of auscultation. The first and second heart sounds were normal and physiologic splitting of the second heart sound was noted. There were no murmurs, rubs, clicks, or gallops. Overall heart sounds are distant. Abdomen is soft, no direct tenderness hemoptysis or guarding. Extremities revealed diminished pulses. No signs or clubbing. The patient has an Impella and a femoral triple-lumen catheter in place. Neurologic the patient is completely unresponsive. No motor reactions to painful stimulation. No response to verbal examination. Pupils are 5 mm in size slightly reactive to light. No nystagmus no clonus. No facial asymmetry. Subsequently, to maintain synchrony, the patient was sedated and paralyzed. Note that he was able to trigger the mechanical ventilator. Results - Laboratory Findings CBC and BMP: 10/11/21 14:50 10/11/21 16:15 ABG ABG pH 6.99 (7.35-7.45) L* 10/11/21 14:19 ABG pCO2 56 mmHg (35-45) H 10/11/21 14:19 ABG pO2 57 mmHg (83-108) L* 10/11/21 14:19 ABG O2 Saturation 78.4 % (94-97) L 10/11/21 14:19 PT/INR, D-dimer PT Cancelled 10/11/21 14:50 INR Cancelled 10/11/21 14:50 Abnormal lab findings: Abnormal Labs 10/11/21 10/11/21 10/11/21 07:35 07:35 07:35 WBC 18.6 H Hgb 17.7 H Hct 53.3 H MCV Neutrophils # 15.6 H Monocytes # 1.3 H APTT 18.9 L Fibrinogen ABG pH ABG pCO2 ABG pO2 ABG HCO3 ABG Total CO2 ABG O2 Saturation ABG Lactic Acid Potassium 6.6 H* Carbon Dioxide 15 L BUN 21 H Creatinine 3.02 H Glucose POC Glucose (mg/dL) Calcium Magnesium 2.8 H Total Bilirubin AST 773 H ALT 497 H Alkaline Phosphatase Lactate Dehydrogenase Total Creatine Kinase CK-MB (CK-2) Troponin I Total Protein 8.6 H Urine Cocaine Screen 10/11/21 10/11/21 10/11/21 07:35 08:50 08:50 WBC Hgb Hct MCV Neutrophils # Monocytes # APTT Fibrinogen ABG pH ABG pCO2 ABG pO2 ABG HCO3 ABG Total CO2 ABG O2 Saturation ABG Lactic Acid Potassium 7.3 H* Carbon Dioxide 13 L BUN 24 H Creatinine 3.10 H Glucose 127 H POC Glucose (mg/dL) Calcium 7.9 L Magnesium Total Bilirubin AST ALT Alkaline Phosphatase Lactate Dehydrogenase Total Creatine Kinase 48646 H* CK-MB (CK-2) 159.0 H Troponin I 0.640 H* 2.060 H* Total Protein Urine Cocaine Screen 10/11/21 10/11/21 10/11/21 10:13 10:18 12:13 WBC Hgb Hct MCV Neutrophils # Monocytes # APTT Fibrinogen ABG pH 7.22 L ABG pCO2 ABG pO2 275 H ABG HCO3 17 L ABG Total CO2 ABG O2 Saturation 99.4 H ABG Lactic Acid Potassium 6.9 H* Carbon Dioxide 14 L BUN 25 H Creatinine 3.82 H Glucose 207 H POC Glucose (mg/dL) Calcium 8.0 L Magnesium Total Bilirubin AST ALT Alkaline Phosphatase Lactate Dehydrogenase Total Creatine Kinase CK-MB (CK-2) Troponin I Total Protein Urine Cocaine Screen Detected H 10/11/21 10/11/21 10/11/21 13:44 14:19 14:50 WBC Hgb Hct MCV Neutrophils # Monocytes # APTT Fibrinogen 113 L ABG pH 6.99 L* ABG pCO2 56 H ABG pO2 57 L* ABG HCO3 13 L ABG Total CO2 15 L ABG O2 Saturation 78.4 L ABG Lactic Acid Potassium Carbon Dioxide BUN Creatinine Glucose POC Glucose (mg/dL) 140 H Calcium Magnesium Total Bilirubin AST ALT Alkaline Phosphatase Lactate Dehydrogenase Total Creatine Kinase CK-MB (CK-2) Troponin I Total Protein Urine Cocaine Screen 10/11/21 10/11/21 10/11/21 14:50 16:15 16:15 WBC 21.2 H Hgb 17.9 H Hct 56.7 H MCV 100.7 H Neutrophils # 17.7 H Monocytes # APTT Fibrinogen ABG pH ABG pCO2 ABG pO2 ABG HCO3 ABG Total CO2 ABG O2 Saturation ABG Lactic Acid 9.8 H* Potassium Carbon Dioxide BUN Creatinine Glucose POC Glucose (mg/dL) Calcium Magnesium Total Bilirubin AST ALT Alkaline Phosphatase Lactate Dehydrogenase Total Creatine Kinase CK-MB (CK-2) Troponin I 64.000 H* Total Protein Urine Cocaine Screen 10/11/21 16:15 WBC Hgb Hct MCV Neutrophils # Monocytes # APTT Fibrinogen ABG pH ABG pCO2 ABG pO2 ABG HCO3 ABG Total CO2 ABG O2 Saturation ABG Lactic Acid Potassium 7.0 H* Carbon Dioxide 13 L BUN 34 H Creatinine 3.85 H Glucose 146 H POC Glucose (mg/dL) Calcium 7.0 L Magnesium 2.6 H Total Bilirubin 3.1 H AST 3576 H ALT 1640 H Alkaline Phosphatase 158 H Lactate Dehydrogenase 81450 H Total Creatine Kinase CK-MB (CK-2) Troponin I Total Protein Urine Cocaine Screen - Diagnostic Findings Chest x-ray: image reviewed Assessment and Plan Plan: [address] segment elevation myocardial infarction. The patient underwent stat cardiac catheterization and the patient was found to have diffuse disease in the culprit was the RCA as the patient was found to have 95% distal RCA lesion with thrombus and PLV lesion with 85% occlusion and thrombus. The patient also had a mid LAD lesion 70%. There were also some minor radiographic irregularities involving the circumflex vessel., The troponin peaked at 64 2 acute cardiac arrest with downtime of 30 minutes. Please refer to the code sheet. 3 acute cardiogenic shock. The patient is currently being supported with Impella. Augment the blood pressure remains low and the patient remains on a high-dose pressor with norepinephrine running at 0.35 Dmitri respiratory [place] per minute and accommodation was vasopressin. 4 acute kidney injury 5 acute hyperkalemia secondary to above 6 acute metabolic acidosis/lactic acidosis and lactic acid level was at 9.8 7 acute hypoxic respiratory failure secondary to above currently intubated on mechanical ventilator, consider aspiration pneumonia 8 altered mentation. The patient initially presented with substance abuse and drug overdose. Nevertheless, the urine drug screen came back positive for cocaine and surprisingly heroin was absent. According to the significant other, heroin is his drug of choice 9 morbid obesity with a BMI of 39 10 history of polysubstance abuse 11 possible anoxic encephalopathy secondary to above-mentioned comorbidities Plan Extremely critical condition continue ventilator support and this is a ventilator changes were done Treatment of acute hyperkalemia with calcium, D50 insulin, bicarbonate, in addition to Lokelma. The patient is ALLERGIC at this point in time. Nephrology has been consulted Management of Impella device per cardiology Continue norepinephrine and vasopressin as well as inotropes Keep the patient sedated and paralyzed for now Keep the patient bicarb infusion Plan Antibiotic coverage with IV Zosyn Continue aspirin, and Brilinta and the patient will be completing his dose of Aggrenox and following that he was switched IV heparin Repeat all of the electrolytes and the blood gases We'll continue to follow. Condition is critical. High likelihood for mortality based above-mentioned comorbidities. Time with Patient: Greater than 30
--- NOTE | 2021-10-11 20:43 | P.EN ---
Code Blue Note Activated at 2019. Arrived on the scene shortly after. Reviewed the chart and discussed the case with the RN. The patient was admitted for unresponsiveness suspected secondary to substance abuse. He was noted to have an STEMI and was taken to the floating labor gang supervisor where he had PCI to RCA though had a cardiac arrest and underwent CPR with subsequent ROSC. A repeat cath was performed and the patient was placed on an impella device and mechanical ventilation and admitted to MICU. He was placed on IV pressors though the patient subsequently developed asystole. The clinic office assistant Dr Valdes subsequently contacted the RN and advised to halt CPR at 2203. The family was at the bedside. The patient was given Epinephrine IVP x 1 during this code. The data warehousing engineer and primary teams were notified.
[2021-10-11] MEDS ORDERED: ATORVASTATIN 80 MG TAB PO SCH (21:00)
[2021-10-11] MEDS ORDERED: TICAGRELOR 90 MG TAB PO SCH (21:00)
--- NOTE | 2021-10-11 21:21 | PN ---
PROGRESS NOTE PROGRESS NOTE/ NOTE: This is a 46-year-old gentleman who was found unresponsive with presumed drug overdose today and also had acute inferior ND. I performed stenting of RCA and subsequently placed an Impella, and he was persistently hypotensive with no urine output. I came in and saw him at least on two different occasions since his arrival in the ICU. I also spoke to the patient's girlfriend, Christa Vargas, who was the nearest next of kin as noted by him, and I explained to her the poor prognosis. At about 8:15 today he became hemodynamically worse with a ventricular standstill, decreased cardiac output on Impella. Impella was reduced to P2. Subsequently I spoke to her on the telephone and suggested that we will withdraw the efforts and let him pass. At 8:24 p.m. he and was pronounced by the nurse. Cause of is acute inferior myocardial infarction, hypoxemia in addition to drug overdose and hypoxemia with probable anoxia of all organs. I came and spoke to the patient's girlfriend, Christa Vargas, and she was very appreciative of the efforts, but understood that the demise was expected, given his lifestyle and circumstances of earlier in the day with drug overdose and acute inferior ND. She was appreciative of the efforts. There was no other family member available when I came in to speak to her after his . ADRIANA / MILLER: [id number] /
--- NOTE | 2021-10-11 21:48 | P.HPIM ---
History of Present Illness H&P Date: 10/11/21 Chief Complaint: Found unresponsive Patient is a 46-year-old male with a known history of heroin IV drug use, currently everyday smoker and obesity with BMI 39.3 was brought to ER by EMS after he was found unresponsive by his roommate. Patient was last seen well on it about 1 AM. Patient was cyanotic when the EMS found him. In the ER EKG showed ST elevated NC involving inferior leads as well as V5 and V6. Cardiology was contacted and patient was taken to cardiac Electrical Engineer underwent emergent cardiac catheterization. During the cardiac catheterization patient had to be intubated and was placed on mechanical ventilator. Cardiac catheterization showed filling pressures elevated and also had 95% distal RCA thrombus and also PLV 85% with thrombus. Patient underwent PCI of the RCA. Following the procedure while in the Electrical Engineer patient went into cardiopulmonary arrest. Patient had PEA with wide-complex rhythm. Patient did have return of spontaneous circulation after about 30 minutes. Repeat cardiac arrest was done and RCA was widely patent. Patient was placed on Impella device and was transferred to intensive care unit. Echocardiogram showed ejection fraction 20 to 25% with severe LV dysfunction and blood pressure was 70/41. Patient is being continued on high doses of norepinephrine also started on vasopressin. Patient was started on bicarb drip and also sedated with propofol. Initial chest x-ray showed cardiomegaly with mild Cephalization of the pulmonary vasculature. Findings are most consistent with mild CHF. Laboratory showed WBC 18.6 hemoglobin 17.7 and platelets 213 ABG showed 7.22 PO2 275 PCO2 42 on admission Sodium 138 potassium 6.6 bicarb is 15 BUN 21 and creatinine 3.02 AST 773 ALT 497 CPK 76012 Troponin 0 0.640 and 2.060 UDS is positive for cocaine. Review of Systems Complete review of systems could not be obtained at this time. Past Medical History Past Medical History: No Reported History History of Any Multi-Drug Resistant Organisms: None Reported Past Surgical History: No Surgical Hx Reported Past Psychological History: No Psychological Hx Reported Smoking Status: Current every day smoker Past Alcohol Use History: None Reported Past Drug Use History: Heroin, IV Drug Use Medications and Allergies Home Medications Medication Instructions Recorded Confirmed Type Gabapentin [Neurontin] 400 mg PO TID 10/11/21 10/11/21 History buPROPion HCL [buPROPion HCL SR] 200 mg PO DAILY 10/11/21 10/11/21 History Allergies Allergy/AdvReac Type Severity Reaction Status Date / Time No Known Allergies Allergy Verified 10/11/21 10:08 Physical Exam Vitals: Vital Signs Temp Pulse Resp BP Pulse Ox 10/11/21 07:15 97.6 F 109 H 30 H 75/53 96 Intake and Output 10/10/21 10/11/21 10/11/21 22:59 06:59 14:59 Intake Total 1466.64 Balance 1466.64 Intake: IV 1466.64 Other: Weight 131.542 kg PHYSICAL EXAMINATION: Patient is lying in the bed Intubated and on mechanical ventilator. Sedated. obese. HEENT: Normocephalic. Neck is supple. Pupils reactive. Nostrils clear. Oral cavity is moist. Neck reveals no JVD, carotid bruits, or thyromegaly. CHEST EXAMINATION: Trachea is central. ET Tube present. Symmetrical expansion. Bibasilar diminished sounds.. CARDIAC: Normal S1, S2 with no gallops. No murmurs ABDOMEN: Soft. Bowel sounds normal. No organomegaly. No abdominal bruits. Extremities: reveal no edema. No clubbing or cyanosis Neurologically Patient is sedated. No gross focal deficit noted. Skin: No rash or skin lesions. Psychiatric: Could not be assessed at this time.l Musculoskeletal: No joint swelling or deformity. Results CBC & Chem 7: 10/11/21 14:50 10/11/21 16:15 Labs: Abnormal Lab Results - Last 24 Hours (Table) 10/11/21 10/11/21 10/11/21 Range/Units 07:35 07:35 07:35 WBC 18.6 H (3.8-10.6) k/uL Hgb 17.7 H (13.0-17.5) gm/dL Hct 53.3 H (39.0-53.0) % Neutrophils # 15.6 H (1.3-7.7) k/uL Monocytes # 1.3 H (0-1.0) k/uL APTT 18.9 L (22.0-30.0) sec ABG pH (7.35-7.45) ABG pO2 (83-108) mmHg ABG HCO3 (21-25) mmol/L ABG O2 Saturation (94-97) % Potassium 6.6 H* (3.5-5.1) mmol/L Carbon Dioxide 15 L (22-30) mmol/L BUN 21 H (9-20) mg/dL Creatinine 3.02 H (0.66-1.25) mg/dL Glucose (74-99) mg/dL Calcium (8.4-10.2) mg/dL Magnesium 2.8 H (1.6-2.3) mg/dL AST 773 H (17-59) U/L ALT 497 H (4-49) U/L Total Creatine Kinase (55-170) U/L CK-MB (CK-2) (0.0-2.4) ng/mL Troponin I (0.000-0.034) ng/mL Total Protein 8.6 H (6.3-8.2) g/dL Urine Cocaine Screen (NotDetected) 10/11/21 10/11/21 10/11/21 Range/Units 07:35 08:50 08:50 WBC (3.8-10.6) k/uL Hgb (13.0-17.5) gm/dL Hct (39.0-53.0) % Neutrophils # (1.3-7.7) k/uL Monocytes # (0-1.0) k/uL APTT (22.0-30.0) sec ABG pH (7.35-7.45) ABG pO2 (83-108) mmHg ABG HCO3 (21-25) mmol/L ABG O2 Saturation (94-97) % Potassium 7.3 H* (3.5-5.1) mmol/L Carbon Dioxide 13 L (22-30) mmol/L BUN 24 H (9-20) mg/dL Creatinine 3.10 H (0.66-1.25) mg/dL Glucose 127 H (74-99) mg/dL Calcium 7.9 L (8.4-10.2) mg/dL Magnesium (1.6-2.3) mg/dL AST (17-59) U/L ALT (4-49) U/L Total Creatine Kinase 70127 H* (55-170) U/L CK-MB (CK-2) 159.0 H (0.0-2.4) ng/mL Troponin I 0.640 H* 2.060 H* (0.000-0.034) ng/mL Total Protein (6.3-8.2) g/dL Urine Cocaine Screen (NotDetected) 10/11/21 10/11/21 Range/Units 10:13 10:18 WBC (3.8-10.6) k/uL Hgb (13.0-17.5) gm/dL Hct (39.0-53.0) % Neutrophils # (1.3-7.7) k/uL Monocytes # (0-1.0) k/uL APTT (22.0-30.0) sec ABG pH 7.22 L (7.35-7.45) ABG pO2 275 H (83-108) mmHg ABG HCO3 17 L (21-25) mmol/L ABG O2 Saturation 99.4 H (94-97) % Potassium (3.5-5.1) mmol/L Carbon Dioxide (22-30) mmol/L BUN (9-20) mg/dL Creatinine (0.66-1.25) mg/dL Glucose (74-99) mg/dL Calcium (8.4-10.2) mg/dL Magnesium (1.6-2.3) mg/dL AST (17-59) U/L ALT (4-49) U/L Total Creatine Kinase (55-170) U/L CK-MB (CK-2) (0.0-2.4) ng/mL Troponin I (0.000-0.034) ng/mL Total Protein (6.3-8.2) g/dL Urine Cocaine Screen Detected H (NotDetected) Thrombosis Risk Factor Assmnt - DVT/VTE Prophylaxis DVT/VTE Prophylaxis: Pharmacologic Prophylaxis ordered Assessment and Plan Assessment: Acute ST elevated inferior wall NC. Status post cardiac catheterization and stent placement to RCA. Acute cardiopulmonary arrest followed by initial cardiac catheterization. Repeat cardiac catheterization showed patent RCA stent and was placed on left ventricular assist device. Acute hypoxic respiratory failure secondary to cardiac arrest. Acute cardiogenic shock. Requiring high dose of pressor support including norepinephrine and vasopressin. Possible anoxic encephalopathy Acute kidney injury possibly ATN due to cardiogenic shock. Severe metabolic acidosis Polysubstance abuse with UDS positive for cocaine Obesity with BMI 39.3 Plan: Patient is currently in the MICU. Sedated and on mechanical ventilator. Status post cardiac catheterization and stent placement to RCA. On aspirin and Brilinta. Patient is being current on high dose of pressor support Also on bicarb drip. Patient is on left ventricular assist device. Monitor renal output. Cardiology, pulmonary and nephrology is on board. Prognosis poor at this time.Discussed with his girlfriend at bedside in detail.. Time with Patient: Greater than 30
[2021-10-11 23:02] VITALS: PULSE 103
[2021-10-12] MEDS ORDERED: PIPERACILLIN-TAZOBACTAM 3.375 GM in SODIUM CHLORIDE 0.9% 100 ML IVPB SCH ×2
[2021-10-12] MEDS ORDERED: ASPIRIN 81 MG PO SCH (09:00)
--- NOTE | 2021-10-12 11:32 | ECHOF ---
Referral Reason: MEASUREMENTS -------- HEIGHT: 0.0 cm WEIGHT: 0.0 kg BP: FINDINGS -------- S/P [employer]ACEMENT BUTTON CUTTER: Bhargavi Olsen RDCS
== END 2021-10-12 01:01 | disposition expired | DRG 215 ==
LOC: EC 07:13 → 2SICU 08:13
PROVIDERS: ADMIT Hospitalist; ATTEND Hospitalist
PROC: 5A0221D Assistance with Cardiac Output using Impeller Pump, Continuous (ICD-10-PCS; 2021-10-11)
PROC: B2111ZZ Fluoroscopy of Multiple Coronary Arteries using Low Osmolar Contrast (ICD-10-PCS; 2021-10-11)
PROC: 4A023N7 Measurement of Cardiac Sampling and Pressure, Left Heart, Percutaneous Approach (ICD-10-PCS; 2021-10-11)
PROC: 5A12012 Performance of Cardiac Output, Single, Manual (ICD-10-PCS; 2021-10-11)
PROC: 3E033XZ Introduction of Vasopressor into Peripheral Vein, Percutaneous Approach (ICD-10-PCS; 2021-10-11)
PROC: 06HY33Z Insertion of Infusion Device into Lower Vein, Percutaneous Approach (ICD-10-PCS; 2021-10-11)
PROC: 5A1935Z Respiratory Ventilation, Less than 24 Consecutive Hours (ICD-10-PCS; 2021-10-11)
PROC: 0BH17EZ Insertion of Endotracheal Airway into Trachea, Via Natural or Artificial Opening (ICD-10-PCS; 2021-10-11)
PROC: 0D9670Z Drainage of Stomach with Drainage Device, Via Natural or Artificial Opening (ICD-10-PCS; 2021-10-11)
PROC: 02HA3RZ Insertion of Short-term External Heart Assist System into Heart, Percutaneous Approach (ICD-10-PCS; principal; 2021-10-11 07:46)
PROC: 027135Z Dilation of Coronary Artery, Two Arteries with Two Drug-eluting Intraluminal Devices, Percutaneous Approach (ICD-10-PCS; 2021-10-11 07:46)
PROC: 02C23ZZ Extirpation of Matter from Coronary Artery, Three Arteries, Percutaneous Approach (ICD-10-PCS; 2021-10-11 07:46)
DX: I21.19 ST elevation (STEMI) myocardial infarction involving other coronary artery of inferior wall (principal); J96.01 Acute respiratory failure with hypoxia; J69.0 Pneumonitis due to inhalation of food and vomit; E87.2 Acidosis; N17.9 Acute kidney failure, unspecified; G93.1 Anoxic brain damage, not elsewhere classified; T50.901A Poisoning by unspecified drugs, medicaments and biological substances, accidental (unintentional), initial encounter; E66.9 Obesity, unspecified; Z68.39 Body mass index [BMI] 39.0-39.9, adult; E87.5 Hyperkalemia; F11.90 Opioid use, unspecified, uncomplicated; F14.10 Cocaine abuse, uncomplicated; F17.210 Nicotine dependence, cigarettes, uncomplicated; I46.9 Cardiac arrest, cause unspecified; I50.9 Heart failure, unspecified; R57.0 Cardiogenic shock; Z79.899 Other long term (current) drug therapy
CPT/HCPCS: 36415; 36556; 71045; 80048; 80053; 80306; 82550; 82553; 82805; 83605; 83615; 83735; 84484; 85025; 85384; 85610; 85730; 92950; 93005; 93306; 93308; 93458; 94002; 99291